=== PATIENT | male | born 1960 | race Two or more races ===

== ENCOUNTER 2019-12-06 11:38 | Inpatient (IN) | payer OTHER ==
[~2019-12-06] VITALS: Ht 180.3 cm; Wt 113.4 kg
[2019-12-06] MEDS ORDERED: GLIMEPIRIDE2 MG (11:51)
[2019-12-06] MEDS ORDERED: TRICOR48 MG PO (11:51)
[2019-12-06] MEDS ORDERED: ATORVASTATIN CA40 MG PO (11:52)
[2019-12-07] MEDS ORDERED: LOSARTAN POTASS50 MG PO (16:23)
[2019-12-07] MEDS ORDERED: ONGLYZA5 MG PO (16:23)
[2019-12-16] MEDS ORDERED: LEVAQUIN750 MG PO (20:01)
[2019-12-16] MEDS ORDERED: FLAGYL500MG PO (20:01)
[2019-12-16] MEDS ORDERED: PEPCID AC20 MG PO (20:01)
[2019-12-16] MEDS ORDERED: INTESTINEX680 M1 PO (20:01)
== END 2019-12-16 20:26 | disposition home or self-care (01) | DRG 442 ==
LOC: ER 11:38 → MEDJ 19:59 → MEDI 12-13 17:39
PROVIDERS: ADMIT Internal Medicine; ATTEND Internal Medicine
PROC: 4A033R1 Measurement of Arterial Saturation, Peripheral, Percutaneous Approach (ICD-10-PCS; 2019-12-06)
PROC: 8E0ZXY6 Isolation (ICD-10-PCS; 2019-12-06)
PROC: 0F9030Z Drainage of Liver with Drainage Device, Percutaneous Approach (ICD-10-PCS; principal; 2019-12-13)
DX: K75.0 Abscess of liver (principal); J98.11 Atelectasis; I10 Essential (primary) hypertension; E86.0 Dehydration; E11.65 Type 2 diabetes mellitus with hyperglycemia; R09.02 Hypoxemia; Z03.818 Encounter for observation for suspected exposure to other biological agents ruled out